=== PATIENT | female | born 1995 | race Caucasian/White ===

== ENCOUNTER 2017-10-25 19:11 | Emergency (ER) | payer MEDICAID ==
[2017-10-25] MEDS ORDERED: NORMAL SALINE 1000 ML 1,000 ML IV ONE (19:55)
--- NOTE | 2017-10-25 19:57 | ER Document Report ---
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 She denies leakage of fluid, vaginal discharge, dysuria, hematuria, flank pain, nausea, vomiting or syncope. - Related Data Allergies/Adverse Reactions: amoxicillin Allergy (Verified 10/25/17 19:15) Hives diphenhydramine Allergy (Verified 10/25/17 19:15) Hives Past Medical History - General Information source: Patient - Social History Smoking Status: Unknown if Ever Smoked Family History: Reviewed & Not Pertinent Review of Systems - Review of Systems Notes: REVIEW OF SYSTEMS: CONSTITUTIONAL: -fevers, -chills EENT: -eye pain, -difficulty swallowing, -nasal congestion CARDIOVASCULAR: -chest pain, -syncope. RESPIRATORY: -cough, -SOB GASTROINTESTINAL: +lower abdominal cramping, -nausea, -vomiting, -diarrhea GENITOURINARY: -dysuria, -hematuria MUSCULOSKELETAL: -back pain, -neck pain SKIN: -rash or skin lesions. HEMATOLOGIC: -easy bruising or bleeding. LYMPHATIC: -swollen, enlarged glands. NEUROLOGICAL: -altered mental status or loss of consciousness, -headache, - neurologic symptoms PSYCHIATRIC: -anxiety, -depression. ALL OTHER SYSTEMS REVIEWED AND NEGATIVE. Physical Exam - Vital signs Vitals: Temp Pulse Resp BP Pulse Ox 98.1 F 94 20 106/60 98 10/25/17 19:19 10/25/17 19:19 10/25/17 19:19 10/25/17 19:19 10/25/17 19:19 - Notes Notes: PHYSICAL EXAMINATION: GENERAL: Well-appearing, well-nourished and in no acute distress. HEAD: Atraumatic, normocephalic. EYES: Pupils equal round and reactive to light, extraocular movements intact, sclera anicteric, conjunctiva are normal. ENT: nares patent, oropharynx clear without exudates. Moist mucous membranes. NECK: Normal range of motion, supple without lymphadenopathy LUNGS: Breath sounds clear to auscultation bilaterally and equal. No wheezes rales or rhonchi. HEART: Regular rate and rhythm without murmurs ABDOMEN: Soft, nontender, normoactive bowel sounds. No guarding, no rebound. No masses appreciated. (Chaperoned by RANJEET Nation) Closed cervical os, no discharge or bleeding, non-tender uterus and adnexa EXTREMITIES: Normal range of motion, no pitting or edema. No cyanosis. NEUROLOGICAL: Cranial nerves grossly intact. Normal speech, normal gait. Normal sensory and motor exams. PSYCH: Normal mood, normal affect. SKIN: Warm, Dry, normal turgor, no rashes or lesions noted. Course - Re-evaluation Re-evalutation: Bedside ultrasound shows a single intrauterine fetus consistent with dates and a heart rate of 152. Urinalysis shows no evidence of a UTI, but does show ketones. She was given IV fluids and she feels much better. Instructed her to keep hydrated and follow-up with OB. - Vital Signs Vital signs: Temp Pulse Resp BP Pulse Ox 98.5 F 89 14 116/72 98 10/25/17 23:13 10/25/17 23:13 10/25/17 23:13 10/25/17 23:13 10/25/17 23:13 - Laboratory Laboratory results interpreted by me: 10/25/17 22:15 Urine Ketones 80 H Discharge - Discharge Clinical Impression: Abdominal cramping Condition: Stable Disposition: HOME, SELF-CARE Additional Instructions: : You are . care is best started as early in as possible. If you're unsure about continuing this , you should discuss this with your physician or with stiff leg derrick operator at [facility]. You should take only medications approved by your physician. Acetaminophen can safely be taken for minor pains. As a rule, medication for chronic conditions such as asthma or seizures can safely be continued. You should discuss with the physician every medicine you take. Any regular exercise program can be continued. Talk to your physician, however, before engaging in competitive or demanding sports. Alcohol, smoking, and "street drugs" are dangerous to your baby. Cocaine is especially dangerous. Don't use any illicit drugs! THREATENED MISCARRIAGE: You have been evaluated for a possible miscarriage. At this time, there is no indication that a miscarriage will occur. Most women with your symptoms will go on to have a perfectly normal baby. However, careful observation will be necessary. A miscarriage occurs when the fetus is abnormal. There is no medicine or treatment for it. You should rest in bed until the symptoms have resolved. Do not douche or have sex for at least a week, or until OK'd by the doctor. Call the doctor or return for re-examination if there is an increase in bleeding or cramping, or passage of tissue. FOLLOW-UP CARE: If you have been referred to a physician for follow-up care, call the physician s office for an appointment as you were instructed or within the next two days. If you experience worsening or a significant change in your symptoms (very heavy bleeding with large clots of blood, passage of tissue, more severe abdominal / pelvic pain or cramping, feeling faint or severe weakness, fever, etc.), notify the physician immediately or return to the Emergency Department at any time for re-evaluation. OBSTETRIC-GYNECOLOGIC (OB-GERMAN PROFESSOR) PHYSICIANS IN [place]: [facility] [address] [place], [place] [phone] [facility] [address] [place] [address] [phone] For active duty and dependents diagnosed with a threatened or miscarriage, you should follow up in the following manner: Standard patients who have a local civilian provider should follow up with that provider. Patients of the Family Practice Clinic should call your Team Nurse at 8: 00 am the following morning for further instructions. If you are neither a Standard patient nor a patient of the Family Practice Clinic, you should follow up at the [facility] ([facility]) . Patients already enrolled in the [facility] OB Clinic, Prime patients not assigned to the Family Practice Clinic, and Active Duty patients not assigned to Family Practice Clinic should report to the [facility] Lab at 8:00 am the next morning that the [facility] OB Clinic is open and then you will be seen in the OB Clinic at 11:00 am. Referrals: ROX HENDRIX MD [ACTIVE STAFF] - Follow up as needed
[2017-10-25 22:42] LABS: APPEARANCE,URINE CLEAR; BILIRUBIN,URINE NEGATIVE (NEGATIVE); COLOR,URINE YELLOW; GLUCOSE, URINE NEGATIVE (NEGATIVE); KETONES,URINE 80 mg/dL (NEGATIVE); LEUKOCYTE ESTERASE,URINE NEGATIVE (NEGATIVE); NITRITE,URINE NEGATIVE (NEGATIVE); PROTEIN,URINE NEGATIVE (NEGATIVE); URINE SPECIFIC GRAVITY 1.013; UROBILINOGEN,URINE NEGATIVE mg/dL (<2.0)
[2017-10-25 23:15] VITALS: BP 116/72
== END 2017-10-25 23:15 | disposition home or self-care (01) ==
LOC: ER 19:11
DX: O26.91 Pregnancy related conditions, unspecified, first trimester (principal); R10.30 Lower abdominal pain, unspecified; Z3A.13 13 weeks gestation of pregnancy; Z88.0 Allergy status to penicillin
CPT/HCPCS: 99284; 96360; 81001; J7030

== ENCOUNTER 2017-11-30 08:10 | Emergency (ER) | payer MEDICAID ==
[2017-11-30] MEDS ORDERED: MORPHINE SULFATE 10 MG/ML INJ IV ONE (09:03)
[2017-11-30] MEDS ORDERED: ONDANSETRON HCL INJ/PF 4 MG/2 ML SDV IV ONE (09:03)
[2017-11-30] MEDS ORDERED: NORMAL SALINE 1000 ML 1,000 ML IV PRN ×2 (09:11→11:31)
--- NOTE | 2017-11-30 09:11 | ER Document Report ---
ED GI/ - General Chief Complaint: Abdominal Pain Stated Complaint: SIDE PAIN Time Seen by Provider: 11/30/17 08:50 Notes: Chief complaint: Abdominal pain History of complain:( obtained from----patient) 22 years old female with a history of 8 weeks , presents today with left lower abdominal pain starting from this morning associated with vomiting many times largely Val. Denies any diarrhea or constipation denies any dysuria frequency urgency. Denies any vaginal discharge. Or pelvic cramps. Onset: As above Duration: Since this morning Severity: Moderate to severe Quality: Sharp and crampy Context: Unknown Exacerbating factor and relieving factors: Not contributory REVIEW OF SYSTEMS: CONSTITUTIONAL : Denies fever, chills, or sweats. Denies recent illness. EENT: Denies eye, ear, throat, or mouth pain or symptoms. Denies nasal or sinus congestion or discharge. Denies throat, tongue, or mouth swelling or difficulty swallowing. CARDIOVASCULAR: Denies chest pain. Denies palpitations or racing or irregular heart beat. Denies ankle edema. RESPIRATORY: Denies cough, cold, or chest congestion. Denies shortness of breath, difficulty breathing, or wheezing. GASTROINTESTINAL: Denies distention. Denies nausea, vomiting, or diarrhea. Denies blood in vomitus, stools, or per rectum. Denies black, tarry stools. Denies constipation. GENITOURINARY: Denies difficulty urinating, painful urination, burning, frequency, blood in urine, or discharge. FEMALE GENITOURINARY: Denies vaginal bleeding, heavy or abnormal periods, irregular periods. Denies vaginal discharge or odor. MUSCULOSKELETAL: Denies back or neck pain or stiffness. Denies joint pain or swelling. SKIN: Denies rash, lesions or sores. HEMATOLOGIC : Denies easy bruising or bleeding. LYMPHATIC: Denies swollen, enlarged glands. NEUROLOGICAL: Denies confusion or altered mental status. Denies passing out or loss of consciousness. Denies dizziness or lightheadedness. Denies headache. Denies weakness or paralysis or loss of use of either side. Denies problems with gait or speech. Denies sensory loss, numbness, or tingling. Denies seizures. PSYCHIATRIC: Denies anxiety or stress. Denies depression, suicidal ideation, or homicidal ideation. ALL OTHER SYSTEMS REVIEWED AND NEGATIVE. PHYSICAL EXAMINATION: GENERAL: Well-appearing, well-nourished and in moderate to severe acute distress. HEAD: Atraumatic, normocephalic. EYES: Pupils equal round and reactive to light, extraocular movements intact, conjunctiva are normal. ENT: Nares patent, oropharynx clear without exudates. Moist mucous membranes. NECK: Normal range of motion, supple without lymphadenopathy LUNGS: Breath sounds clear to auscultation bilaterally and equal. No wheezes rales or rhonchi. HEART: Regular rate and rhythm without murmurs ABDOMEN: Soft, tender, nondistended abdomen. No guarding, no rebound. No masses appreciated. Slight tenderness over the left lower quadrant. No rebound tenderness or guarding Examination of genitals-deferred Musculoskeletal: Normal range of motion, no pitting or edema. No cyanosis. NEUROLOGICAL: Cranial nerves grossly intact. Normal speech, normal gait. Normal sensory, motor exams PSYCH: Normal mood, normal affect. SKIN: Warm, Dry, normal turgor, no rashes or lesions noted. Dictation was performed using [employer] voice recognition software TRAVEL OUTSIDE OF THE [place] IN LAST 30 DAYS: No - HPI Associated symptoms: denies: None, Blood in emesis, Blood in stool, Chest pain, Chills, Coffee ground emesis, Constipation, Diarrhea, Dizzy, Dysuria, Fever, Hard stool, Hematuria, Hurts to breath, Inguinal mass, Lightheaded, Loss of appetite, Nausea, Odor, Painful intercourse, Radiates to back, Radiates to chest , Radiates to vagina, Radiates to shoulder, Shortness of breath, Sweaty, Syncope , Urinary hesitancy, Urinary frequency, Urinary retention, Urinary urgency, Vaginal discharge, Vomiting, Other Exacerbated by: denies: Denies, Supine, Sitting, Standing, Movement, Walking, Coughing, Deep breathing, Food, Other - Related Data Allergies/Adverse Reactions: amoxicillin Allergy (Verified 11/30/17 08:14) Hives diphenhydramine Allergy (Verified 11/30/17 08:14) Hives Past Medical History - Social History Smoking Status: Unknown if Ever Smoked Cigarette use (# per day): No Chew tobacco use (# tins/day): No Smoking Education Provided: No Frequency of alcohol use: None Drug Abuse: None Lives with: Family Family History: Reviewed & Not Pertinent Patient has suicidal ideation: No Patient has homicidal ideation: No - Past Medical History Cardiac Medical History: Denies: None, Hx Atrial Fibrillation, Hx Congestive Heart Failure, Hx Coronary Artery Disease, Hx DVT, Hx Heart Attack, Hx Hypercholesterolemia, Hx Hypertension, Hx Peripheral Vascular Disease, Hx Pulmonary Embolism, Hx Heart Murmur, Other Pulmonary Medical History: Denies: None, Hx Asthma, Hx Bronchitis, Hx COPD, Hx Pneumonia, Hx Intubation , Hx Respiratory Failure, Hx Sleep Apnea, Hx Tuberculosis, Other Renal/ Medical History: Denies: Hx Peritoneal Dialysis Review of Systems - Review of Systems Notes: Dictated Physical Exam - Vital signs Vitals: Temp Pulse Resp BP Pulse Ox 98.0 F 83 16 127/70 H 98 11/30/17 08:14 11/30/17 08:14 11/30/17 08:14 11/30/17 08:14 11/30/17 08:14 - Notes Notes: Dictated Course - Vital Signs Vital signs: Temp Pulse Resp BP Pulse Ox 98.0 F 83 16 127/70 H 98 11/30/17 08:14 11/30/17 08:14 11/30/17 08:14 11/30/17 08:14 11/30/17 08:14 - Laboratory Result Diagrams: 11/30/17 09:35 11/30/17 09:35 Laboratory results interpreted by me: 11/30/17 11/30/17 11/30/17 09:35 09:35 10:39 WBC 10.9 H Hct 35.4 L RDW 14.1 H Seg Neutrophils % 85.4 H Lymphocytes % 8.4 L Absolute Neutrophils 9.3 H Beta HCG, Quant 78716.00 H Urine Protein 30 H Urine Ketones 20 H Urine Blood LARGE H Urine Urobilinogen 2.0 H Ur Leukocyte Esterase TRACE H - Diagnostic Test Radiology reviewed: Reports reviewed - Ultrasound of the abdomen-renal scan nonsignificant finding, mild hydronephrosis no stones Pelvic ultrasound reported by radiologist as 16 week Discharge - Discharge Clinical Impression: Abdominal pain Qualifiers: Abdominal location: left lower quadrant Qualified Code(s): R10.32 - Left lower quadrant pain Qualifiers: Weeks of gestation: 16 weeks Qualified Code(s): Z3A.16 - 16 weeks gestation of Hematuria Qualifiers: Hematuria type: unspecified type Qualified Code(s): R31.9 - Hematuria, unspecified Condition: Fair Disposition: HOME, SELF-CARE Instructions: Abdominal Pain ([facility]) Prescriptions: Promethazine HCl 25 mg PO Q6 #30 tablet
[2017-11-30 09:53] LABS: ABSOLUTE LYMPHOCYTES (AUTO) 0.9 10^3/uL (0.5-4.7); ABSOLUTE MONOCYTES (AUTO) 0.6 10^3/uL (0.1-1.4); ABSOLUTE NEUT (AUTO) 9.3 10^3/uL (1.7-8.2); BASOPHILS % (AUTO) 0.2 % (0-2); EOSINOPHILS % (AUTO) 0.2 % (0-6); HEMATOCRIT 35.4 % (36.0-47.0); HEMOGLOBIN 12.2 g/dL (12.0-15.5); LYMPHOCYTES % (AUTO) 8.4 % (13-45); MEAN CORPUSCULAR HEMOGLOBIN 29.1 pg (27.0-33.4); MEAN CORPUSCULAR HGB CONC 34.6 g/dL (32.0-36.0); MEAN CORPUSCULAR VOLUME 84 fl (80-97); MONOCYTES % (AUTO) 5.8 % (3-13); PLATELET COUNT 203 10^3/uL (150-450); RED BLOOD COUNT 4.21 10^6/uL (3.72-5.28); RED CELL DISTRIBUTION WIDTH 14.1 % (11.5-14.0); SEGMENTED NEUTROPHILS % (AUTO) 85.4 % (42-78); TOTAL CELLS COUNTED % (AUTO) 100 %; WHITE BLOOD COUNT 10.9 10^3/uL (4.0-10.5)
[2017-11-30 10:14] LABS: ALANINE AMINOTRANSFERASE 42 U/L (9-52); ALBUMIN 3.5 g/dL (3.5-5.0); ALKALINE PHOSPHATASE 83 U/L (38-126); ANION GAP 11 (5-19); ASPARTATE AMINO TRANSFERASE 28 U/L (14-36); BILIRUBIN,DIRECT 0.2 mg/dL (0.0-0.4); BILIRUBIN,TOTAL 0.3 mg/dL (0.2-1.3); BLOOD UREA NITROGEN 7 mg/dL (7-20); CALCIUM 9.5 mg/dL (8.4-10.2); CARBON DIOXIDE 23 mmol/L (22-30); CHLORIDE 106 mmol/L (98-107); GLUCOSE 105 mg/dL (75-110); SODIUM 139.6 mmol/L (137-145); TOTAL PROTEIN 6.4 g/dL (6.3-8.2)
[2017-11-30] MEDS ORDERED: PROCHLORPERAZINE EDISYLATE INJ 10 MG/2 ML VIAL IV ONE (10:31)
--- NOTE | 2017-11-30 10:44 | RADIOLOGY REPORT (SQ) ---
EXAM DESCRIPTION: U/S OB 14+ TRNABD 1GES W/O DOP COMPLETED DATE/TIME: 11/30/2017 10:27 am REASON FOR STUDY: /abdominal pain COMPARISON: None. TECHNIQUE: Static and Dynamic grayscale imaging performed of gravid uterus using transabdominal appr oach. Additional selected color Doppler and spectral images recorded. All stored on PACS. LIMITATIONS: None. FINDINGS: EGA: 16 week 4 day TONY: 05/13/2018 EFW: 167 +/- 25 grams PERCENTILE: Not calculated. ELIS: Largest vertical pocket 3.32 cm. PLACENTA: Anterior with mild venous Mcgee formation. No evidence of abruption or previa. PRESENTATION: Variable. ANATOMY: HEART RATE: 139 beats per minute. FOUR CHAMBER HEART: Visualized. THREE VESSEL CORD: Yes. CORD INSERTION: Visualized. KIDNEYS AND BLADDER: Visualized. Appear normal. STOMACH: Visualized. Appears normal. SPINE: Normal as visualized. BRAIN AND LATERAL VENTRICLES: Visualized. Appear normal. OTHER: No other significant finding. MATERNAL ADNEXA: Maternal ovaries not visualized. CERVICAL LENGTH: 3.2 cm. Closed. OTHER: No other significant finding. IMPRESSION: LIVING INTRAUTERINE . ESTIMATED GESTATIONAL AGE 16 week 4 days NO VISUALIZED ANOMALIES. Trimester of : Second trimester - 13 weeks 1 day to 27 weeks 6 days. TECHNICAL DOCUMENTATION: JOB ID: [id number] [employer]- All Rights Reserved Reading location - IP/workstation name: [email or web address]
[2017-11-30 11:08] LABS: APPEARANCE,URINE CLOUDY; BILIRUBIN,URINE NEGATIVE (NEGATIVE); COLOR,URINE YELLOW; GLUCOSE, URINE NEGATIVE (NEGATIVE); KETONES,URINE 20 mg/dL (NEGATIVE); LEUKOCYTE ESTERASE,URINE TRACE (NEGATIVE); NITRITE,URINE NEGATIVE (NEGATIVE); PROTEIN,URINE 30 mg/dL (NEGATIVE); URIC ACID CRYSTALS,URINE MODERATE /HPF; URINE SPECIFIC GRAVITY 1.023
[2017-11-30] MEDS ORDERED: NORMAL SALINE 1000 ML 1,000 ML IV ONE (11:31)
[2017-11-30 12:24] LABS: URINE AMPHETAMINES SCREEN NEGATIVE; URINE BARBITURATES SCREEN NEGATIVE; URINE BENZODIAZEPINES SCREEN NEGATIVE; URINE COCAINE SCREEN NEGATIVE; URINE MARIJUANA (THC) SCREEN NEGATIVE; URINE METHADONE SCREEN NEGATIVE; URINE PHENCYCLIDINE SCREEN NEGATIVE
--- NOTE | 2017-11-30 12:49 | RADIOLOGY REPORT (SQ) ---
EXAM DESCRIPTION: U/S RETROPERITON (RENAL/AORTA) COMPLETED DATE/TIME: 11/30/2017 12:31 pm REASON FOR STUDY: Left-sided abdominal pain, rule out left ureteric COMPARISON: None. TECHNIQUE: Dynamic and static grayscale images acquired of the kidneys and bladder and recorded on P ACS. Additional selected color Doppler and spectral images recorded. LIMITATIONS: None. FINDINGS: RIGHT KIDNEY: Normal size. Normal echogenicity. No solid or suspicious masses. No hydronep hrosis. No calcifications. LEFT KIDNEY: Normal size. No mass or stones. Mild left renal pelvic dilatation to 4.7 mm. This is within expected for a patient at 16 weeks gestation and suspected to be physiologic. BLADDER: Bilateral ureteral jets are demonstrated. No mass or stones. OTHER FINDINGS: No other significant finding. IMPRESSION: 1. Minimal left renal pelvic dilatation is within normal limits for expected given the patient's gestational state. No evidence of obstruction, bilateral urine flow into the bladder demon strated. TECHNICAL DOCUMENTATION: JOB ID: [id number] [employer]- All Rights Reserved Reading location - IP/workstation name: [email or web address]
[2017-11-30 14:57] VITALS: BP 99/51
== END 2017-11-30 14:20 | disposition home or self-care (01) ==
LOC: ER 08:10
DX: O26.892 Other specified pregnancy related conditions, second trimester (principal); R10.32 Left lower quadrant pain; R31.9 Hematuria, unspecified; O21.9 Vomiting of pregnancy, unspecified; Z3A.16 16 weeks gestation of pregnancy; Z88.0 Allergy status to penicillin; Z88.8 Allergy status to other drugs, medicaments and biological substances
CPT/HCPCS: 99284; 96361; 96374; 96375; 36415; 84702; 85025; 80053; 81001; 80307; 76770; 76805; J2270; J0780; J2405; J7030

== ENCOUNTER 2017-12-02 01:28 | Emergency (ER) | payer MEDICAID ==
[2017-12-02] MEDS ORDERED: MORPHINE SULFATE 10 MG/ML INJ IV ONE ×2 (02:02→03:07)
[2017-12-02] MEDS ORDERED: ONDANSETRON HCL INJ/PF 4 MG/2 ML SDV IV ONE (02:02)
[2017-12-02] MEDS ORDERED: NORMAL SALINE 500 ML IV ONE (02:03)
[2017-12-02 02:30] LABS: ABSOLUTE BASOPHILS # (AUTO) 0.1 10^3/uL (0.0-0.2); ABSOLUTE LYMPHOCYTES (AUTO) 1.5 10^3/uL (0.5-4.7); ABSOLUTE MONOCYTES (AUTO) 0.7 10^3/uL (0.1-1.4); ABSOLUTE NEUT (AUTO) 8.5 10^3/uL (1.7-8.2); BASOPHILS % (AUTO) 0.6 % (0-2); EOSINOPHILS % (AUTO) 0.3 % (0-6); HEMATOCRIT 35.8 % (36.0-47.0); HEMOGLOBIN 12.3 g/dL (12.0-15.5); MEAN CORPUSCULAR HEMOGLOBIN 29.4 pg (27.0-33.4); MEAN CORPUSCULAR HGB CONC 34.4 g/dL (32.0-36.0); MEAN CORPUSCULAR VOLUME 85 fl (80-97); MONOCYTES % (AUTO) 6.7 % (3-13); PLATELET COUNT 215 10^3/uL (150-450); RED CELL DISTRIBUTION WIDTH 14.6 % (11.5-14.0); SEGMENTED NEUTROPHILS % (AUTO) 78.4 % (42-78); TOTAL CELLS COUNTED % (AUTO) 100 %; WHITE BLOOD COUNT 10.9 10^3/uL (4.0-10.5)
[2017-12-02 02:47] LABS: ANION GAP 9 (5-19); BLOOD UREA NITROGEN 5 mg/dL (7-20); CALCIUM 9.5 mg/dL (8.4-10.2); CARBON DIOXIDE 26 mmol/L (22-30); CHLORIDE 107 mmol/L (98-107); GLUCOSE 100 mg/dL (75-110); POTASSIUM 3.8 mmol/L (3.6-5.0); SODIUM 141.6 mmol/L (137-145)
[2017-12-02 03:22] LABS: APPEARANCE,URINE CLEAR; BILIRUBIN,URINE NEGATIVE (NEGATIVE); CALCIUM OXALATE CRYSTALS,URINE RARE /HPF; COLOR,URINE YELLOW; GLUCOSE, URINE NEGATIVE (NEGATIVE); KETONES,URINE 20 mg/dL (NEGATIVE); LEUKOCYTE ESTERASE,URINE NEGATIVE (NEGATIVE); NITRITE,URINE NEGATIVE (NEGATIVE); PROTEIN,URINE NEGATIVE (NEGATIVE); URINE SPECIFIC GRAVITY 1.024
--- NOTE | 2017-12-02 03:35 | RADIOLOGY REPORT (SQ) ---
EXAM DESCRIPTION: US RETROPERITONEUM COMPLETED DATE/TME: 12/02/2017 02:02 CLINICAL HISTORY: 22 years, Female, left flank pain COMPARISON: 7.29.18 LIMITATIONS: None. FINDINGS: 13 cm left kidney with mildly dilated left renal collecting system with renal pelvis diameter measuring 0.6 cm. 12 cm right kidney nondistended urinary bladder appear otherwise unremarkable. Gravid uterus. IMPRESSION: Mild left maternal hydronephrosis-- gravid patient. Probably physiologic; differential diagnosis includes pathologic process.
--- NOTE | 2017-12-02 05:14 | ER Document Report ---
ED General - General Chief Complaint: Abdominal Pain Stated Complaint: ABDOMINAL PAIN Time Seen by Provider: 12/02/17 01:50 Notes: Patient is a pleasant 22-year-old female who was seen here approximately day and half ago for left flank pain with vomiting hematuria. She had an ultrasound that time which showed mild hydronephrosis which is likely physiologic per the ultrasound report. She also had an OB ultrasound which showed that the intrauterine was normal-appearing and 16 weeks gestation. She denies any vaginal bleeding. No abnormal vaginal discharge. Blood work at that time was normal. Urinalysis showed hematuria without any evidence of urinary tract infection. Patient was discharged home with medication. Patient says she has continued to vomit and have recurrent pain. The pain goes from her left back around her left flank and into the left inguinal area. She says it comes in waves and is severe. She says she has been unable to sleep or do anything because of the recurrent pain and vomiting. She has no previous history of kidney stones. This is her first . TRAVEL OUTSIDE OF THE [place] IN LAST 30 DAYS: No - Related Data Allergies/Adverse Reactions: amoxicillin Allergy (Verified 11/30/17 08:14) Hives diphenhydramine Allergy (Verified 11/30/17 08:14) Hives Past Medical History - Social History Smoking Status: Former Smoker Chew tobacco use (# tins/day): No Frequency of alcohol use: None Drug Abuse: None Family History: Reviewed & Not Pertinent Patient has suicidal ideation: No Patient has homicidal ideation: No - Past Medical History Cardiac Medical History: Denies: Hx Atrial Fibrillation, Hx Congestive Heart Failure, Hx Coronary Artery Disease, Hx DVT, Hx Heart Attack, Hx Hypercholesterolemia, Hx Hypertension, Hx Peripheral Vascular Disease, Hx Pulmonary Embolism, Hx Heart Murmur Pulmonary Medical History: Denies: Hx Asthma, Hx Bronchitis, Hx COPD, Hx Pneumonia, Hx Intubation, Hx Respiratory Failure, Hx Sleep Apnea, Hx Tuberculosis Renal/ Medical History: Denies: Hx Peritoneal Dialysis Past Surgical History: Reports: Hx Oral Surgery - wisdom, Hx Orthopedic Surgery - right knee Review of Systems - Review of Systems Notes: My Normal Review Basic REVIEW OF SYSTEMS: CONSTITUTIONAL : Denies fever, chills, or sweats. Denies recent illness. RESPIRATORY: Denies cough, cold, or chest congestion. Denies shortness of breath, difficulty breathing, or wheezing. GASTROINTESTINAL: Denies abdominal pain. Recurrent vomiting GENITOURINARY: Flank pain and hematuria. FEMALE GENITOURINARY: Denies vaginal bleeding, abnormal or irregular periods. LMP: Currently MUSCULOSKELETAL: Denies neck or back pain or joint pain or swelling. SKIN: Denies rash or skin lesions. NEUROLOGICAL: Denies altered mental status or loss of consciousness. ALL OTHER SYSTEMS REVIEWED AND NEGATIVE. Physical Exam - Vital signs Vitals: Temp Pulse Resp BP Pulse Ox 98.6 F 87 16 118/68 98 12/02/17 01:34 12/02/17 01:34 12/02/17 01:34 12/02/17 01:34 12/02/17 01:34 - Notes Notes: General Appearance: Well nourished, alert, cooperative, no acute distress, moderate to severe obvious discomfort. Vitals: reviewed, See vital signs table. Head: no swelling or tenderness to the head Eyes: PERRL, EOMI, Conjuctiva clear Mouth: No decreasd moisture Neck: Supple, no neck tenderness, No thyromegaly Lungs: No wheezing, No rales, No rhonci, No accessory muscle use, good air exchange bilaterally. Heart: Normal rate, Regular rythm, No murmur, no rub Back: No reproducible pain palpation of the back. Abdomen: Normal BS, soft, No rigidity, minimal worsening of pain with palpation of left flank. Anterior abdomen is nontender., No guarding, no rebound, no abdominal masses, no organomegaly Extremities: strength 5/5 in all extremities, good pulses in all extremities, no swelling or tenderness in the extremities, no edema. Skin: warm, dry, appropriate color, no rash Neuro: speech clear, oriented x 3, normal affect, responds appropriately to questions. Course - Re-evaluation Re-evalutation: 12/02/17 05:08 Due to patient's exam and history and findings I strongly suspect her pain is related to a kidney stone. Patient's ultrasound yesterday did show some mild hydronephrosis which was read as probably physiologic however is only in the left side where her pain is and she does not have any on her right side. Since then she has had continued recurrent vomiting and the cath urine today shows that she only has blood in her urine without any signs of infection and she is having ketones due to the recurrent vomiting. Also her pain is from her left back around her left flank and has been colicky and very consistent with that of a kidney stone. Repeat ultrasound today continues to show hydronephrosis and now is read as could be physiologic or possibly pathologic. Even though it is not common to have hydro with , I strongly suspect that the hydronephrosis more likely is related to a stone and that this is what is causing her colicky left flank pain in association with her hematuria. OB ultrasound yesterday from her previous visit to the ER showed that her is progressing without any problems and there is no complications or problems seen on that ultrasound. Ultrasound showed that she is 16 weeks . We do not have urology coverage here. I do not want to send the patient back home as her pain continues to come in waves and she has had associated vomiting causing dehydration and ketones in urine. I do not want her become more dehydrated being that she is . I feel that she does need to stay in the hospital for continued pain and nausea management until she passes a stone or until her pain and nausea is completely controlled. We do not have urology here for consult. I therefore called [facility] and spoke with Dr. Tiana Orosco who was very kind and accepted the patient. Dictation of this chart was performed using voice recognition software; therefore, there may be some unintended grammatical errors. 12/02/17 06:22 Patient just left. Some transport her pain was mild. Her nausea was under control at this time. Patient is medically stable for transport. - Vital Signs Vital signs: Temp Pulse Resp BP Pulse Ox 98.6 F 80 20 132/65 H 98 12/02/17 01:34 12/02/17 05:24 12/02/17 05:24 12/02/17 05:24 12/02/17 05:24 - Laboratory Result Diagrams: 12/02/17 02:17 12/02/17 02:17 Laboratory results interpreted by me: 12/02/17 12/02/17 12/02/17 02:17 02:17 02:45 WBC 10.9 H Hct 35.8 L RDW 14.6 H Seg Neutrophils % 78.4 H Absolute Neutrophils 8.5 H BUN 5 L Urine Ketones 20 H Urine Blood MODERATE H Urine Urobilinogen 4.0 H Urine Ascorbic Acid 40 H Discharge - Discharge Clinical Impression: Flank pain Hematuria Qualifiers: Hematuria type: unspecified type Qualified Code(s): R31.9 - Hematuria, unspecified Qualifiers: Weeks of gestation: 16 weeks Qualified Code(s): Z3A.16 - 16 weeks gestation of Condition: Stable Disposition: [facility]
[2017-12-02 06:31] VITALS: BP 122/75
== END 2017-12-02 06:40 | disposition short-term general hospital (02) ==
LOC: ER 01:28
DX: O26.92 Pregnancy related conditions, unspecified, second trimester (principal); R10.9 Unspecified abdominal pain; R11.10 Vomiting, unspecified; R31.9 Hematuria, unspecified; Z3A.16 16 weeks gestation of pregnancy; Z88.0 Allergy status to penicillin
CPT/HCPCS: 96376; 99285; 96361; 96374; 96375; 36415; 85025; 80048; 81001; 76770; J2270; J2405; J7040

== ENCOUNTER 2018-03-08 23:36 | Outpatient (CLI) | payer MEDICAID ==
[2018-03-09 00:16] LABS: AMORPHOUS SEDIMENT,URINE TRACE /HPF; APPEARANCE,URINE SLIGHTLY-CLOUDY; BILIRUBIN,URINE NEGATIVE (NEGATIVE); COLOR,URINE YELLOW; GLUCOSE, URINE NEGATIVE (NEGATIVE); KETONES,URINE NEGATIVE (NEGATIVE); LEUKOCYTE ESTERASE,URINE LARGE (NEGATIVE); NITRITE,URINE NEGATIVE (NEGATIVE); PROTEIN,URINE NEGATIVE (NEGATIVE); URINE SPECIFIC GRAVITY 1.003; UROBILINOGEN,URINE NEGATIVE mg/dL (<2.0)
[2018-03-09 00:29] LABS: URINE AMPHETAMINES SCREEN NEGATIVE; URINE BARBITURATES SCREEN NEGATIVE; URINE BENZODIAZEPINES SCREEN NEGATIVE; URINE COCAINE SCREEN NEGATIVE; URINE MARIJUANA (THC) SCREEN NEGATIVE; URINE METHADONE SCREEN NEGATIVE; URINE PHENCYCLIDINE SCREEN NEGATIVE
--- NOTE | 2018-03-09 02:16 | RADIOLOGY REPORT (SQ) ---
EXAM DESCRIPTION: US FOLLOW UP COMPLETED DATE/TME: 03/09/2018 00:00 CLINICAL HISTORY: 22 years, Female, 30wk vaginal bleed-complete OB US,check placenta COMPARISON: None. TECHNIQUE: Transverse and longitudinal transabdominal sonographic images in a third trimester patient LIMITATIONS: None. FINDINGS: There is a single, live intrauterine gestation in the cephalic presentation. The cervical length is approximately 2.82 cm. The placenta is anterior in location with a grade 1 echotexture. No evidence for previa. Estimated weight 1910 g +/- 2 183 g. heart tones obtained at 160 bpm. A detailed anatomic assessment was not performed. Current ultrasound age is 32 weeks 3 days. Ratios: HC to a.c. 1.07. FL to BPD 74.2. FL to HC: 20.7. FL to a.c.: 22.1. Amniotic fluid index approximately 13.3 cm. IMPRESSION: Single, live intrauterine gestation with current ultrasound age 32 weeks 3 days. Continued nonemergent obstetric follow-up recommended 2010 [employer]- All Rights Reserved
== END 2018-03-09 02:34 | disposition home or self-care (01) ==
LOC: LC 23:36
PROVIDERS: ATTEND Obstetrics & Gynecology
PROC: 4A1HXCZ Monitoring of Products of Conception, Cardiac Rate, External Approach (ICD-10-PCS; principal; 2018-03-08)
DX: O46.93 Antepartum hemorrhage, unspecified, third trimester (principal); O47.03 False labor before 37 completed weeks of gestation, third trimester; Z3A.32 32 weeks gestation of pregnancy
CPT/HCPCS: 76805; 80307; 81001; 93976

== ENCOUNTER 2018-04-07 23:17 | Outpatient (CLI) | payer MEDICAID ==
[2018-04-07 23:47] LABS: AMORPHOUS SEDIMENT,URINE TRACE /HPF; APPEARANCE,URINE CLOUDY; BILIRUBIN,URINE NEGATIVE (NEGATIVE); COLOR,URINE YELLOW; GLUCOSE, URINE NEGATIVE (NEGATIVE); KETONES,URINE NEGATIVE (NEGATIVE); LEUKOCYTE ESTERASE,URINE LARGE (NEGATIVE); NITRITE,URINE NEGATIVE (NEGATIVE); PROTEIN,URINE NEGATIVE (NEGATIVE); URINE SPECIFIC GRAVITY 1.006; UROBILINOGEN,URINE NEGATIVE mg/dL (<2.0)
[2018-04-08 00:17] LABS: URINE AMPHETAMINES SCREEN NEGATIVE; URINE BARBITURATES SCREEN NEGATIVE; URINE BENZODIAZEPINES SCREEN NEGATIVE; URINE COCAINE SCREEN NEGATIVE; URINE MARIJUANA (THC) SCREEN NEGATIVE; URINE METHADONE SCREEN NEGATIVE; URINE PHENCYCLIDINE SCREEN NEGATIVE
--- NOTE | 2018-04-08 00:44 | Non Stress Test Report ---
Non Stress Test Datetime Report Generated by CPN: 04/08/2018 00:43 DEMOGRAPHIC Test Number: 1 EGA NST: 34.5 INDICATION Indication for Study: Ordered by Provider VITAL SIGNS Temperature - NST: 98.3 URINE RESULTS Urine Protein, NST: Negative Urine Ketones - NST: Negative Urine Glucose - NST: Negative Urine Blood - NST: Negative MONITORING Monitor Explained: Monitor Explained; Test Explained; Patient Verbalized Understanding Time on Monitor: 04/07/2018 23:36 Time off Monitor: 04/08/2018 00:39 NST Duration: 63 NST INTERVENTIONS NST Interventions: PO Hydration; Reposition Patient Physician Notified NST: Dr. Younger BABY A: [id number] BABY A Movement : Present Contraction Frequency : 2-6 FHR Baseline : 140 Accelerations : 15X15 Decelerations : None Variability : Moderate 6-25bpm NST Review: Meets Criteria for Reactive NST NST Review and Verified By : Miguel Bautista RN NST Results: Reactive NST REPORT Report Trigger: Send Report
== END 2018-04-08 00:39 | disposition home or self-care (01) ==
LOC: LC 23:17
PROVIDERS: ATTEND Obstetrics & Gynecology
PROC: 4A1HXCZ Monitoring of Products of Conception, Cardiac Rate, External Approach (ICD-10-PCS; principal; 2018-04-07)
DX: Z34.93 Encounter for supervision of normal pregnancy, unspecified, third trimester (principal)
CPT/HCPCS: 59025; 80307; 81001; 84112

== ENCOUNTER 2018-05-06 05:55 | Inpatient (IN) | payer MEDICAID ==
[2018-05-06 06:37] LABS: APPEARANCE,URINE TURBID; BILIRUBIN,URINE NEGATIVE (NEGATIVE); COLOR,URINE YELLOW; GLUCOSE, URINE NEGATIVE (NEGATIVE); KETONES,URINE NEGATIVE (NEGATIVE); LEUKOCYTE ESTERASE,URINE TRACE (NEGATIVE); NITRITE,URINE NEGATIVE (NEGATIVE); PROTEIN,URINE 100 mg/dL (NEGATIVE); URINE SPECIFIC GRAVITY 1.009; UROBILINOGEN,URINE NEGATIVE mg/dL (<2.0)
[2018-05-06] MEDS ORDERED: CLINDAMYCIN 900 MG/D5W RTU 900 MG/50 ML RTUPB IV SCH (06:45)
[2018-05-06 06:52] LABS: URINE AMPHETAMINES SCREEN NEGATIVE; URINE BARBITURATES SCREEN NEGATIVE; URINE BENZODIAZEPINES SCREEN NEGATIVE; URINE COCAINE SCREEN NEGATIVE; URINE MARIJUANA (THC) SCREEN NEGATIVE; URINE METHADONE SCREEN NEGATIVE; URINE PHENCYCLIDINE SCREEN NEGATIVE
[2018-05-06] MEDS: RINGERS SOLUTION,LACTATED 1,000 ML IV PRN ×2 (06:54→14:58)
[2018-05-06] MEDS ORDERED: CLINDAMYCIN 900 MG/D5W RTU 900 MG/50 ML RTUPB IV ONE ×2 (06:55→14:36)
[2018-05-06] MEDS ORDERED: MISOPROSTOL 0.2 MG TABLET ONE (06:56)
[2018-05-06] MEDS ORDERED: OXYTOCIN 10 UNIT/ML VIAL ONE (06:56)
[2018-05-06] MEDS ORDERED: LIDOCAINE 1% INJ-PF (10 MG/ML) 30 ML SDV ONE (06:56)
[2018-05-06] MEDS ORDERED: OXYTOCIN/NORMAL SALINE 20 UNIT/1,000 ML RTUINJ ONE (06:56)
[2018-05-06] MEDS ORDERED: RINGERS SOLUTION,LACTATED 300 ML IV ONE (07:06)
--- NOTE | 2018-05-06 07:45 | Admission Physical ---
Datetime Report Generated by CPN: 05/06/2018 07:45 CURRENT ADMISSION Chief Complaint: Suspected Ruptured Membranes Indication for Induction: PROM Admit Impression : Term, Intrauterine ; No Active Labor; Ruptured Membranes Admit Plan: Admit to Unit; Initiate Labor Induction Protocol Admit Plan- Other: cervical ripening with cytotec ALLERGIES Medication Allergies: Yes Medication Allergies: amoxicillin/Hives (05/06/2018); diphenhydramine/Hives (05/06/2018) Latex: No Latex Allergies OBSTETRICAL HISTORY EDC: 05/13/2018 00:00 : 1 Para: 0 Term: 0 : 0 SAB: 0 IAB: 0 Ectopic: 0 Livin Cesareans: 0 VBACs: 0 Multiple Births: 0 Gestational Diabetes: No Rh Sensitization: No Incompetent Cervix: No ADIN: No Infertility: No ART Treatment: No Uterine Anomaly: No IUGR: No Hx Previous C/S: No Macrosomia: No Hx Loss/Stillborn: No PIH: No Hx : No Placenta Previa/Abruption: No Depression/PP Depression: No PTL/PROM: No Post Hemorrhage: No Current Procedures: Ultrasound Obstetrical History Comments: G1: current prregnancy SEE RECORDS Alcohol: No Marijuana : No Cocaine: No Other Illicit Drugs: No Cigarettes: Current Everyday Smoker. 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 INFECTIOUS HISTORY Gonorrhea: No Genital Herpes: No Chlamydia: No Tuberculosis: No Syphilis: No Hepatitis: No HIV/AIDS Exposure: No Rash or Viral Illness: No HPV: No PHYSICAL EXAM General: Normal HEENT: Normal Neurologic: Normal Thyroid: Normal Heart: Normal Lungs: Normal Breast: Normal Back: Normal Abdomen: Normal Genitourinary Exam: Normal Extremities: Normal DTRs: Normal Pelvic Type: Adequate Vital Signs: Reviewed VAGINAL EXAM Dilatation: 0 Effacement: 0 Station: -3 MEMBRANES Pooling: Positive Membranes: Ruptured Amniotic Fluid Color: Clear FETUS A EGA: 39.0 Monitoring: External US FHR- Baseline: 130 Variability: Moderate 6-25bpm Accelerations: 15X15 Decelerations: None FHR Category: Category I Estimated Weight (gm): 2500 Presentation: Vertex PLANS FOR LABOR AND DELIVERY Labor and Delivery: None Pain Management: Medications; Epidural Other Pain Management Plans: unsure Feeding Preference: Breast Benefit of Breast Feed Discussed: Yes Circumcision: Yes INFORMED CONSENT Signature: with User ID: [email or web address]
[2018-05-06 08:07] LABS: ABSOLUTE EOSINOPHILS # (AUTO) 0.1 10^3/uL (0.0-0.6); ABSOLUTE LYMPHOCYTES (AUTO) 1.6 10^3/uL (0.5-4.7); ABSOLUTE MONOCYTES (AUTO) 0.7 10^3/uL (0.1-1.4); ABSOLUTE NEUT (AUTO) 8.9 10^3/uL (1.7-8.2); BASOPHILS % (AUTO) 0.2 % (0-2); EOSINOPHILS % (AUTO) 0.6 % (0-6); HEMATOCRIT 36.2 % (36.0-47.0); HEMOGLOBIN 12.3 g/dL (12.0-15.5); LYMPHOCYTES % (AUTO) 13.8 % (13-45); MEAN CORPUSCULAR HGB CONC 33.9 g/dL (32.0-36.0); MEAN CORPUSCULAR VOLUME 83 fl (80-97); MONOCYTES % (AUTO) 6.3 % (3-13); PLATELET COUNT 241 10^3/uL (150-450); RED BLOOD COUNT 4.38 10^6/uL (3.72-5.28); RED CELL DISTRIBUTION WIDTH 15.5 % (11.5-14.0); SEGMENTED NEUTROPHILS % (AUTO) 79.1 % (42-78); TOTAL CELLS COUNTED % (AUTO) 100 %; WHITE BLOOD COUNT 11.3 10^3/uL (4.0-10.5)
[2018-05-06] MEDS ORDERED: MISOPROSTOL 0.1 MG TABLET PV ONE ×2 (08:12→12:50)
[2018-05-06] MEDS ORDERED: MISOPROSTOL 0.1 MG TABLET PO ONE ×2 (08:12→12:50)
[2018-05-06] MEDS ORDERED: MISOPROSTOL 0.1 MG TABLET ONE ×2 (08:23→13:06)
--- NOTE | 2018-05-06 09:26 | L&D Progress Notes ---
PROGRESS NOTES Datetime Report Generated by CPN: 05/06/2018 09:26 PROGRESS NOTE Impression: Reassuring Heart Rate; Rupture of Membranes Plan: Continue Present Management Vital Signs : Reviewed; Within Normal Limits Comment: Cat 1 strip, breathing with uc's at times, irreg uc's, family at BS, questions answered VAGINAL EXAM Dilatation: 0 Effacement: 0 Station: -3 LAST VAGINAL EXAM-NURSING Dilitation: 0.5 Effacement: 25 Station: -3 Contractions: pt. denies feeling ctn's Contractions: pt. denies feeling ctn's MEMBRANES Pooling: Positive Membranes: Ruptured Amniotic Fluid Color: Clear FETUS A Variability: Moderate 6-25bpm Decelerations: None : 39.0 Estimated Weight (gm): 2500 Presentation: Vertex SIGNATURE SIGNATURE: [id number];[id number];13,[id number] SIGNATURE: [id number];[id number] SIGNATURE: [id number] Assignment: Myron Lubin MD Signature: with User ID: [email or web address] : with User ID: [email or web address]
[2018-05-06] MEDS ORDERED: NALBUPHINE HCL INJ 10 MG/1 ML AMPULE IV ONE (11:33)
[2018-05-06] MEDS ORDERED: NALBUPHINE HCL INJ 10 MG/1 ML AMPULE ONE (11:43)
--- NOTE | 2018-05-06 11:56 | L&D Progress Notes ---
PROGRESS NOTES Datetime Report Generated by CPN: 05/06/2018 11:56 PROGRESS NOTE Impression: Reassuring Heart Rate Plan: Continue Present Management; Augmentation; Anticipate Vaginal Delivery Vital Signs : Reviewed; Within Normal Limits Comment: Nubain for pain with relief, Cat 1 strip. occas variable, irreg uc's VAGINAL EXAM Contractions: with irratability Contractions: Orient removed to place Lavern monitor. Contractions: RN at bedside adjusting toco. Contractions: RN at bedside adjusting toco. FETUS C SIGNATURE: [id number];14,[id number];10,[id number] Assignment: Myron Lubin MD Signature: with User ID: [email or web address] : with User ID: [email or web address]
[2018-05-06] MEDS ORDERED: FENTANYL/BUPIVACAINE/NS/PF 300 MCG/150 ML RTUINJ EPI ONE (15:45)
[2018-05-06] MEDS ORDERED: EPHEDRINE SULFATE INJ 50 MG/1 ML AMPULE ONE (15:45)
[2018-05-06] MEDS ORDERED: BUPIVACAINE HCL 0.25 % INJ/PF (2.5 MG/1 ML) 30 ML VIAL ONE (15:45)
--- NOTE | 2018-05-06 16:36 | L&D Progress Notes ---
PROGRESS NOTES Datetime Report Generated by CPN: 05/06/2018 16:36 PROGRESS NOTE Comment: VE @ 1538 8/100/vtx, -1, crying out loud, wanting epidural, in process of getting epidural, irreg uc's, Cat 1 strip Anticipate VAGINAL EXAM Dilitation: 7-8 Dilitation: 2.0 Effacement: 100 Effacement: 50 Station: -1 Station: -3 Contractions: with irratability Contractions: With irratability. Contractions: With irratability Contractions: with irratability FETUS C SIGNATURE: [id number];14,[id number];13,[id number] Assignment: Myron Lubin MD Signature: with User ID: [email or web address] : with User ID: [email or web address]
--- NOTE | 2018-05-06 18:08 | Warning Signs in Babies ---
VOD Warning Signs Datetime Report Generated by [facility]: 05/06/2018 18:07 VOD#608 -Warning Signs in Babies: Viewed with Parent(s)/Family (03/08/2018 23:38:Dustin Corrales RN)
--- NOTE | 2018-05-06 19:23 | Warning Signs in Babies ---
VOD Warning Signs Datetime Report Generated by [facility]: 05/06/2018 19:23 VOD#608 -Warning Signs in Babies: Viewed with Parent(s)/Family (05/06/2018 19:15:Louisa Owens RN)
--- NOTE | 2018-05-06 19:47 | Delivery Summary ---
Del Sum A-C Datetime Report Generated by CPN: 05/06/2018 19:47 DELIVERY PERSONNEL DELIVERY PERSONNEL: [id number] Delivery Doctor:: Myron Lubin MD Labor and Delivery Nurse:: Dustin Corrales RNsandwich peddler Nurse:: GARRISON [place] Student Observers:: Sandra Bray RN- Nurse resident Door Machine Operator/LOOM OPERATOR: Anuradha Tabor LOOM OPERATOR II MATERNAL INFORMATION Delivery Anesthesia: Epidural Medications After Delivery: Pitocin Bolus-Please Comment Meds After Delivery Comment: Pitocin 20 units in 1000 ml nss open for bolus Maternal Complications: None LABOR SUMMARY EDC: 05/13/2018 00:00 No. Babies in Womb: 1 Attempted: No Labor Anesthesia: Epidural LABOR INFORMATION Reason for Induction: Not Applicable Onset of Labor: 05/06/2018 14:30 Complete Dilatation: 05/06/2018 16:58 Cervical Ripening Agents: Cytotec @ Oxytocin: N/A Group B Beta Strep: Positive Antibiotics # of Doses: 2 Antibiotics Time of Last Dose: 1445 Name of Antibiotic Given: clindamycin Steroids Given: None Reason Steroids Not Administered: Not Applicable MEMBRANES Membranes Rupture Method: Spontaneous Rupture of Membranes: 05/06/2018 05:30 Length of Rupture (hr): 11.88 Amniotic Fluid Color: Clear Amniotic Fluid Amount: Small Amniotic Fluid Odor: Normal STAGES OF LABOR Stage 1 hr: 2 Stage 1 min: 28 Stage 2 hr: 0 Stage 2 min: 25 Stage 3 hr: 0 Stage 3 min: 2 Total Time in Labor hr: 2 Total Time in Labor min: 55 VAGINAL DELIVERY Episiotomy: None Laceration #1: Vaginal Laceration Extension #1: First Degree Other Laceration: vaginal laceration Laceration Repair: Yes Sponge Count Correct: N/A Sharps Count Correct: N/A CSECTION DELIVERY Primary Indication: N/A CSection Incidence: N/A Labor: N/A Elective: N/A CSection Incision: N/A BABY A INFORMATION Delivery Date/Time: 05/06/2018 17:23 Method of Delivery: Vaginal Born in Route : No : N/A Forceps: N/A Vacuum Extraction: N/A Shoulder Dystocia : No PRESENTATION/POSITION BABY A Presentation: Cephalic Cephalic Presentation: Vertex Vertex Position: Left Occipital Anterior Breech Presentation: N/A PLACENTA INFORMATION BABY A Placenta Delivery Time : 05/06/2018 17:25 Placenta Method of Delivery: Spontaneous Placenta Status: Delivered SCORES BABY A Heart Rate 1 min: >100 bpm Resp Effort 1 min: Good Cry Reflex Irritability 1 min: Cough or Sneeze or Pulls Away Muscle Tone 1 min: Active Motion Color 1 min: Body [place], Extremities Blue Resuscitation Effort 1 min: Tactile Stimulation SCORE 1 MIN: 9 Heart Rate 5 min: >100 bpm Resp Effort 5 min: Good Cry Reflex Irritability 5 min: Cough or Sneeze or Pulls Away Muscle Tone 5 min: Active Motion Color 5 min: Body [place], Extremities Blue Resuscitation Effort 5 min: Tactile Stimulation SCORE 5 MIN: 9 INFANT INFORMATION BABY A Gestational Age at Delivery: 39.0 Gestational Status: Full Term- 39- 40.6 Weeks Outcome : Liveborn Infant Condition : Stable Sex: Male IDENTIFICATION BABY A Infant Verification Date/Time: 05/06/2018 17:50 ID Band Number: [id number] Mother's Name Verified: Yes RN Verifying : Harmony Corrales, RN and Theo Bray, RN WEIGHT/LENGTH BABY A Birthweight (gm): 3390 Weight (lb): 7 Infant Weight (oz): 8 Infant Length (in): 20.75 Length (cm): 52.71 CORD INFORMATION BABY A No. Cord Vessels: 3 Nuchal Cord : Around Neck x1, Loose Cord Blood Taken: Yes-For Eval (Mom's Blood Type - or O+) Infant Suction: None ASSESSMENT BABY A Complications: Multiple Variable Decels Skin to Skin: Yes BABY B INFORMATION : N/A
[2018-05-06] MEDS ORDERED: PROMETHAZINE HCL 25 MG SUPP.RECT PR PRN (20:10)
[2018-05-06] MEDS ORDERED: ACETAMINOPHEN WITH CODEINE #3 TABLET PO PRN ×2 (20:10)
[2018-05-06] MEDS ORDERED: PSEUDOEPHEDRINE HCL 30 MG TABLET PO PRN (20:10)
[2018-05-06] MEDS ORDERED: DIPHENHYDRAMINE HCL 25 MG CAPSULE PO PRN (20:10)
[2018-05-06] MEDS ORDERED: ACETAMINOPHEN 325 MG TABLET PO PRN (20:10)
[2018-05-06] MEDS ORDERED: PROMETHAZINE HCL INJ 25 MG/1 ML VIAL IV PRN (20:10)
[2018-05-06] MEDS ORDERED: ACETAMINOPHEN 650 MG SUPP.RECT PR PRN (20:10)
[2018-05-06] MEDS ORDERED: DIPH/PERTUSS(ACELL)/TETANUS VAC/PF 0.5 ML SYR (>=10YO) IM PRN (20:10)
[2018-05-06] MEDS ORDERED: PROMETHAZINE HCL 25 MG TABLET PO PRN (20:10)
[2018-05-06] MEDS ORDERED: DIBUCAINE 1% OINTMENT 28 GM TP PRN (20:10)
[2018-05-06] MEDS ORDERED: NA PHOS,M-B/NA PHOS,DI-BA (ADULT) 133 ML ENEMA PR PRN (20:10)
[2018-05-06] MEDS ORDERED: GLYCERIN/WITCH HAZEL LEAF 1 EACH MED..PAD TP PRN (20:10)
[2018-05-06] MEDS ORDERED: MEASLES,MUMPS&RUBELLA VACC/PF 0.5 ML VIAL SUBCUT PRN (20:10)
[2018-05-06] MEDS ORDERED: BENZOCAINE/MENTHOL AEROSOL SPRAY 56 ML TOP PRN (20:10)
[2018-05-06] MEDS ORDERED: MAGNESIUM HYDROXIDE SUSP 30 ML UDCUP PO PRN (20:10)
[2018-05-06] MEDS ORDERED: ZOLPIDEM TARTRATE 5 MG TABLET PO PRN (20:10)
[2018-05-06] MEDS: IBUPROFEN 800 MG TABLET PO SCH (22:12)
[2018-05-06] MEDS: FAMOTIDINE 20 MG TABLET PO SCH (22:12)
[2018-05-07] MEDS: IBUPROFEN 800 MG TABLET PO SCH ×3 (05:15→21:46)
[2018-05-07 07:43] LABS: HEMATOCRIT 33.7 % (36.0-47.0); HEMOGLOBIN 11.5 g/dL (12.0-15.5); MEAN CORPUSCULAR HEMOGLOBIN 28.2 pg (27.0-33.4); MEAN CORPUSCULAR VOLUME 83 fl (80-97); PLATELET COUNT 218 10^3/uL (150-450); RED BLOOD COUNT 4.07 10^6/uL (3.72-5.28); RED CELL DISTRIBUTION WIDTH 15.6 % (11.5-14.0); WHITE BLOOD COUNT 15.1 10^3/uL (4.0-10.5)
[2018-05-07] MEDS: SENNOSIDES/DOCUSATE 8.6-50 MG 1 EACH TABLET PO SCH (09:48)
[2018-05-07] MEDS: FERROUS SULFATE 325 MG TABLET PO SCH ×2 (09:48→18:34)
[2018-05-07] MEDS: PRENATAL VITAMIN W DHA CAPSULE PO SCH (09:48)
[2018-05-07] MEDS: FAMOTIDINE 20 MG TABLET PO SCH ×2 (09:48→21:46)
[2018-05-07] MEDS: DOCUSATE SODIUM 100 MG CAPSULE PO SCH ×2 (09:48→18:34)
--- NOTE | 2018-05-07 10:08 | PDOC PROGRESS REPORT ---
Subjective-OB Progress Note for:: 05/07/18 Physical Exam (OB) Vital Signs: Temp Pulse Resp BP Pulse Ox 98.2 F 76 15 117/65 98 05/07/18 08:45 05/07/18 08:45 05/07/18 08:45 05/07/18 08:45 05/07/18 08:45 Intake & Output 05/06/18 05/07/18 05/08/18 06:59 06:59 06:59 Intake Total 1000 Balance 1000 Weight 115.4 kg - PIH/Pre-Eclampsia DTR's: 1 + Clonus: Negative Headache: Absent Epigastric Pain: No Visual Changes: No - Lochia Lochia Amount: Scant < 10 ml Lochia Color: Rubra/Red - Abdomen Description: Soft, Round Hernia Present: No Bowel Sounds: Normoactive Flatus Presence: Present Stool: No Fundal Description: Firm, Midline Fundal Height: u/u - u/2 Objective-Diagnostic Laboratory: 05/07/18 07:04 05/07/18 07:04 WBC 15.1 H RBC 4.07 Hgb 11.5 L Hct 33.7 L MCV 83 MCH 28.2 MCHC 34.0 RDW 15.6 H Plt Count 218
[2018-05-08] MEDS: IBUPROFEN 800 MG TABLET PO SCH (05:39)
[2018-05-08 08:38] VITALS: BP 121/64
--- NOTE | 2018-05-08 09:51 | PDOC PROGRESS REPORT ---
Subjective-OB Progress Note for:: 05/08/18 Subjective: Doing well, no c/o, Physical Exam (OB) Vital Signs: Temp Pulse Resp BP Pulse Ox 98 F 78 18 121/64 99 05/08/18 08:37 05/08/18 08:37 05/08/18 08:37 05/08/18 08:37 05/08/18 08:37 Intake & Output 05/07/18 05/08/18 05/09/18 06:59 06:59 06:59 Intake Total 1000 Output Total 900 Balance 1000 -900 - PIH/Pre-Eclampsia DTR's: 1 + Clonus: Negative Headache: Absent Epigastric Pain: No Visual Changes: No - Lochia Lochia Amount: Scant < 10 ml Lochia Color: Rubra/Red - Abdomen Description: Soft, Round Hernia Present: No Fundal Description: Firm, Midline Fundal Height: u/u - u/2 Objective-Diagnostic Laboratory: 05/07/18 07:04 Assessment and Plan(PN) - Assessment and Plan (1) Positive GBS test Is this a current diagnosis for this admission?: Yes (2) Delivery normal Is this a current diagnosis for this admission?: Yes - Time Spent with Patient Time with patient: Less than 15 minutes Medications reviewed and adjusted accordingly: Yes - Disposition Anticipated Discharge: Home Within: within 24 hours
--- NOTE | 2018-05-08 09:53 | PDOC DISCHARGE SUMMARY ---
Final Diagnosis Discharge Date: 05/08/18 - Final Diagnosis (1) Positive GBS test Is this a current diagnosis for this admission?: Yes (2) Delivery normal Is this a current diagnosis for this admission?: Yes Discharge Data - Discharge Medication Home Medications: Vit,Calc76/Iron/Folic [Pnv 29-1 Tablet] 1 tab PO DAILY 03/09/18 Gestational Age: 39 Reason(s) for Admission: PROM, Group B Strep Positive Procedures: NST, Ultrasound Intrapartum Procedure(s): Spontaneous Vaginal Delivery Complication(s): Laceration-Vaginal Laceration-Degree: 1st - Diagnosis Test Laboratory: Temp Pulse Resp BP Pulse Ox 98 F 78 18 121/64 99 05/08/18 08:37 05/08/18 08:37 05/08/18 08:37 05/08/18 08:37 05/08/18 08:37 05/06/18 05/06/18 05/07/18 06:05 07:31 07:04 RBC 4.38 4.07 Hgb 12.3 11.5 L Hct 36.2 33.7 L Urine Opiates Screen NEGATIVE - Discharge information/Instructions Discharge Activity: Activity As Tolerated, No Lifting Over 10 Pounds, No Lifting/Push/Pulling, Pelvic Rest Discharge Diet: As Tolerated, Regular Disposition: HOME, SELF-CARE Follow up with: [facility] in: 3, Weeks
[2018-05-08] MEDS: FERROUS SULFATE 325 MG TABLET PO SCH (11:02)
[2018-05-08] MEDS: PRENATAL VITAMIN W DHA CAPSULE PO SCH (11:02)
[2018-05-08] MEDS: FAMOTIDINE 20 MG TABLET PO SCH (11:03)
[2018-05-08] MEDS: SENNOSIDES/DOCUSATE 8.6-50 MG 1 EACH TABLET PO SCH (11:03)
[2018-05-08] MEDS: DOCUSATE SODIUM 100 MG CAPSULE PO SCH (11:03)
== END 2018-05-08 13:20 | disposition home or self-care (01) | DRG 807 ==
LOC: LC 05:55 → LR 06:48 → 2S 19:55
PROVIDERS: ADMIT Obstetrics & Gynecology Gynecology; ATTEND Obstetrics & Gynecology Gynecology
PROC: 10E0XZZ Delivery of Products of Conception, External Approach (ICD-10-PCS; principal; 2018-05-06)
PROC: 0HQ9XZZ Repair Perineum Skin, External Approach (ICD-10-PCS; 2018-05-06)
DX: O99.824 Streptococcus B carrier state complicating childbirth (principal); Z37.0 Single live birth; O99.52 Diseases of the respiratory system complicating childbirth; O99.62 Diseases of the digestive system complicating childbirth; O69.81X0 Labor and delivery complicated by cord around neck, without compression, not applicable or unspecified; O99.214 Obesity complicating childbirth; O99.334 Smoking (tobacco) complicating childbirth; O70.0 First degree perineal laceration during delivery; K80.20 Calculus of gallbladder without cholecystitis without obstruction; J45.909 Unspecified asthma, uncomplicated; O76 Abnormality in fetal heart rate and rhythm complicating labor and delivery; E66.9 Obesity, unspecified; F17.210 Nicotine dependence, cigarettes, uncomplicated; Z3A.39 39 weeks gestation of pregnancy
CPT/HCPCS: 36415; 80307; 81005; 84112; 85025; 85027; 86592; 86850; 86900; 86901; 94760; J2300; J2590; J3010; J3490